=== PATIENT | female | born 1960 | race Caucasian/White ===

== ENCOUNTER 2017-12-02 20:19 | Emergency (ER) | payer OTHER ==
[~2017-12-02] VITALS: Ht 162.6 cm; Wt 88.5 kg
[~2017-12-02 20:19] MED LIST: PRINIVIL20 MG PO; ZESTRIL40 MG PO
[2017-12-02] MEDS ORDERED: GABAPENTIN 100100 MG (20:41)
[2017-12-02] MEDS ORDERED: NORVASC5 MG (20:41)
[2017-12-02] MEDS ORDERED: MOBIC15 MG (20:42)
[2017-12-02] MEDS ORDERED: ERYTHROMYCIN E3.5 G3 OPHTHALMIC (20:56)
[2017-12-02 21:00] VITALS: BP 136/97
[2017-12-03] MEDS ORDERED: ALLEGRA-D 12 H1 EAC1 PO (09:59)
[2017-12-03] MEDS ORDERED: KEFLEX500 M1 PO (10:02)
== END 2017-12-02 21:01 | disposition home or self-care (01) ==
LOC: M.ERS 20:19
DX: H10.9 Unspecified conjunctivitis (principal); I10 Essential (primary) hypertension; F17.210 Nicotine dependence, cigarettes, uncomplicated

== ENCOUNTER 2017-12-03 09:31 | Emergency (ER) | payer OTHER ==
[~2017-12-03] VITALS: Ht 162.6 cm; Wt 89.4 kg
[~2017-12-03 09:31] MED LIST changes: +ERYTHROMYCIN E3.5 G3 OPHTHALMIC; +GABAPENTIN 100100 MG; +MOBIC15 MG; +NORVASC5 MG
[2017-12-03 09:36] VITALS: BP 142/100
[2017-12-03] MEDS ORDERED: ALLEGRA-D 12 H1 EAC1 PO (09:59)
[2017-12-03] MEDS ORDERED: KEFLEX500 M1 PO (10:02)
== END 2017-12-03 10:10 | disposition left against medical advice (07) ==
LOC: M.ERS 09:31
DX: H10.9 Unspecified conjunctivitis (principal); I10 Essential (primary) hypertension; F17.210 Nicotine dependence, cigarettes, uncomplicated

== ENCOUNTER 2019-07-12 17:41 | Emergency (ER) | payer MEDICAID ==
[~2019-07-12] VITALS: Ht 162.6 cm; Wt 108.9 kg
[~2019-07-12 17:41] MED LIST changes: +ALLEGRA-D 12 H1 EAC1 PO; +KEFLEX500 M1 PO
[2019-07-12 18:24] LABS: INFLUENZA A ANTIGEN Negative (Negative); INFLUENZA B ANTIGEN Negative (Negative)
[2019-07-12] MEDS ORDERED: TESSALON PERLE100 MG PO (18:56)
[2019-07-12] MEDS ORDERED: PREDNISONE 20 M20 M1 PO (18:56)
[2019-07-12] MEDS ORDERED: ZPAK PO (18:56)
[2019-07-12 19:21] VITALS: BP 159/103
== END 2019-07-12 19:21 | disposition home or self-care (01) ==
LOC: M.ERS 17:41
PROVIDERS: Family Medicine
DX: J20.9 Acute bronchitis, unspecified (principal); I10 Essential (primary) hypertension; G62.9 Polyneuropathy, unspecified; F17.210 Nicotine dependence, cigarettes, uncomplicated; Z98.890 Other specified postprocedural states

== ENCOUNTER 2019-07-22 11:53 | Emergency (ER) | payer MEDICAID ==
[~2019-07-22] VITALS: Ht 162.6 cm; Wt 111.1 kg
[~2019-07-22 11:53] MED LIST changes: +PREDNISONE 20 M20 M1 PO; +TESSALON PERLE100 MG PO; +ZPAK PO
[2019-07-22] MEDS ORDERED: TESSALON PERLE100 MG PO (12:11)
[2019-07-22] MEDS ORDERED: PRINIVIL40 MG PO (12:11)
[2019-07-22 12:23] VITALS: BP 183/105
== END 2019-07-22 12:25 | disposition home or self-care (01) ==
LOC: M.ERS 11:53
DX: I10 Essential (primary) hypertension (principal); Z76.0 Encounter for issue of repeat prescription; G62.9 Polyneuropathy, unspecified; F17.210 Nicotine dependence, cigarettes, uncomplicated; Z98.890 Other specified postprocedural states